=== PATIENT | male | born 1985 | race Caucasian/White ===

== ENCOUNTER 2020-08-13 18:16 | Emergency (ER) | payer OTHER ==
[~2020-08-13] VITALS: Ht 188 cm; Wt 90.7 kg
[2020-08-13 19:40] VITALS: BP 122/74
== END 2020-08-13 19:41 | disposition home or self-care (01) ==
LOC: M.ERS 18:16
DX: Z20.828 Contact with and (suspected) exposure to other viral communicable diseases (principal)

== ENCOUNTER 2020-10-09 18:20 | Emergency (ER) | payer OTHER ==
[~2020-10-09] VITALS: Ht 188 cm; Wt 90.7 kg
[2020-10-09 19:11] VITALS: BP 146/104
== END 2020-10-09 19:11 | disposition home or self-care (01) ==
LOC: M.ERS 18:20
DX: U07.1 COVID-19 (principal)

== ENCOUNTER 2021-10-09 09:28 | Emergency (ER) | payer OTHER ==
[~2021-10-09] VITALS: Ht 188 cm; Wt 86.2 kg
[2021-10-09] MEDS ORDERED: TRAMADOL 50 MG50 MG PO (12:42)
[2021-10-09 13:11] VITALS: BP 147/93
== END 2021-10-09 13:12 | disposition home or self-care (01) ==
LOC: M.ERS 09:28
DX: S62.316A Displaced fracture of base of fifth metacarpal bone, right hand, initial encounter for closed fracture (principal); W22.01XA Walked into wall, initial encounter; Y93.89 Activity, other specified; Y92.89 Other specified places as the place of occurrence of the external cause; Y99.8 Other external cause status